=== PATIENT | female | born 1945 | race Caucasian/White ===

== ENCOUNTER 2021-05-10 14:04 | Inpatient (IN) | payer BC ==
[~2021-05-10] VITALS: Ht 170.2 cm; Wt 67.6 kg
--- NOTE | 2021-05-10 14:26 | NUR ---
Note undone in EDM - 05/10/21 at 1911 by JULIUS THE PATIENT BIBS FOR C/O HEADACHE AND DIZZINESS X 2 DAYS,SLURRED SPEECH YESTERDAY AT 1600 X FEW MINNUTES. THE PATIENT RATES HEADACHE 03/31. DENIES SOB. IN ROOM AIR. RESPIRATION REGULAR AND UNLABORED. ATTACHED TO THE MONITOR. WARM BLANKET PROVIDED FOR COMFORT. WILL CONTINUE TO MONITOR THE PATIENT.
--- NOTE | 2021-05-10 14:26 | NUR ---
THE PATIENT BIBS FOR C/O HEADACHE AND DIZZINESS X 2 DAYS,SLURRED SPEECH YESTERDAY AT 1600 X FEW MINNUTES. NO SLURRED SPEECH NOTED AT THIS TIME. THE PATIENT RATES HEADACHE 9/10. DENIES SOB. IN ROOM AIR. RESPIRATION REGULAR AND UNLABORED. ATTACHED TO THE MONITOR. WARM BLANKET PROVIDED FOR COMFORT. WILL CONTINUE TO MONITOR THE PATIENT.
--- NOTE | 2021-05-10 14:36 | NUR ---
DR WEST AT THE BEDSIDE
--- NOTE | 2021-05-10 14:36 | NUR ---
BLOOD SPECIMEN COLLECTED AND SENT TO THE LAB
[2021-05-10] MEDS ORDERED: METOCLOPRAMIDE HCL 10 MG/2 ML VIAL ONE (14:58)
[2021-05-10] MEDS ORDERED: SUMATRIPTAN SUCCINATE 6 MG/0.5 ML VIAL SQ ONE ×2 (14:58→15:00)
[2021-05-10] MEDS ORDERED: METOCLOPRAMIDE HCL 10 MG/2 ML VIAL IV ONE (15:00)
[2021-05-10] MEDS ORDERED: IV NS 0.9% 1,000 ML BAG IV ONE (15:00)
[2021-05-10 15:02] LABS: BASOPHILS # (AUTO) 0.1 K/uL (0.0-0.2); BASOPHILS % (AUTO) 1.5 % (0.0-2.0); EOSINOPHILS % (AUTO) 4.1 % (0.0-6.0); HEMATOCRIT 35 % (33-45); HEMOGLOBIN 12.1 g/dL (11.5-14.8); LYMPHOCYTES # (AUTO) 1.2 K/uL (0.8-4.8); LYMPHOCYTES % (AUTO) 30.4 % (20.0-44.0); MEAN CORPUSCULAR HGB CONC 34 g/dl (31.0-36.0); MEAN CORPUSCULAR VOLUME 90 fL (82-100); MONOCYTES # (AUTO) 0.3 K/uL (0.1-1.30); MONOCYTES % (AUTO) 6.5 % (2.0-12.0); NEUTROPHILS # (AUTO) 2.3 K/uL (1.8-8.9); NEUTROPHILS % (AUTO) 57.5 % (43.0-81.0); PLATELET COUNT (AUTO) 207 K/uL (150-450)
--- NOTE | 2021-05-10 15:05 | NUR ---
TAKEN TO CT IN STABLE CONDITION.
[2021-05-10 15:10] LABS: CARBON DIOXIDE 28 mmol/L (21-32); CHLORIDE 104 mmol/L (98-107); CREATININE 1.7 mg/dL (0.6-1.3); GLUCOSE 104 mg/dL (74-106); POTASSIUM 4.2 mmol/L (3.5-5.1); SODIUM SERUM 140 mmol/L (136-145); UREA NITROGEN, BLOOD 28 mg/dL (7-18)
[2021-05-10 15:17] LABS: ALANINE AMINOTRANSFERASE 25 U/L (12-78); ALBUMIN 3.8 g/dL (3.4-5.0); ALKALINE PHOSPHATASE 114 U/L (46-116); ASPARTATE AMINOTRANSFERASE 19 U/L (15-37); BILIRUBIN,DIRECT 0.1 mg/dL (0.0-0.2); BILIRUBIN,TOTAL 0.3 mg/dL (0.2-1.0); TOTAL PROTEIN, SERUM 7.2 g/dL (6.4-8.2)
--- NOTE | 2021-05-10 15:47 | NUR ---
DR WEST MADE AWARE OF BP 194/82 AND HR 65. NO NEW ORDERS AT THIS TIME.
[2021-05-10] MEDS ORDERED: FLUT16SP16 (15:58)
[2021-05-10] MEDS ORDERED: LITH150C PO (15:58)
[2021-05-10] MEDS ORDERED: CALC1TAB30 PO (15:58)
[2021-05-10] MEDS ORDERED: MONT10TA22 PO (15:58)
[2021-05-10] MEDS ORDERED: VITA1TAB56 PO (15:58)
[2021-05-10] MEDS ORDERED: FLUO20CA42 PO (15:58)
[2021-05-10] MEDS ORDERED: CALC0.253 PO (15:58)
[2021-05-10] MEDS ORDERED: POLY17PO4 PO (15:58)
[2021-05-10] MEDS ORDERED: LEVO112T7 PO (15:58)
[2021-05-10] MEDS ORDERED: POLY15DR40 EACHEYE (15:59)
--- NOTE | 2021-05-10 16:46 | NUR ---
COVID SWAB DONE AND SENT TO THE LAB
--- NOTE | 2021-05-10 17:07 | NUR ---
CALLED NURSING SUP FOR TELE BED.
--- NOTE | 2021-05-10 17:08 | NUR ---
DR WEST MADE AWARE OF BP 180/79 AND HR 65. NO NEW ORDERS AT THIS TIME.
--- NOTE | 2021-05-10 19:16 | NUR ---
REPORT GIVEN TO NURSE MONTGOMERY FOR DENNY
--- NOTE | 2021-05-10 20:21 | NUR ---
per admitting, Dr supervisor inspection department for pt's primary care dr is Dr Holland. Awaiting dr's call
--- NOTE | 2021-05-10 21:19 | NUR ---
DR WEST ON THE PHONE W/ CORY VIDES, HOSPITALIST
--- NOTE | 2021-05-10 22:08 | NUR ---
pt sitting quietly, playing on cell phone. No complaints at this time
--- NOTE | 2021-05-10 22:10 | NUR ---
TELE BED: 310-4
--- NOTE | 2021-05-10 22:34 | NUR ---
gave report to shyann Trivedi for devin
[2021-05-10 22:45] VITALS: BP 152/82
[2021-05-10 23:00] VITALS: BP 152/82
[2021-05-10] MEDS ORDERED: FLUTICASONE PROPIONATE 16 GM BOTTLE NS PRN (23:00)
[2021-05-10] MEDS ORDERED: IV NS 0.9% 1,000 ML IV PRN (23:00)
[2021-05-10] MEDS ORDERED: ONDANSETRON HCL/PF 4 MG/2 ML VIAL IVP PRN (23:00)
[2021-05-10] MEDS ORDERED: KETOROLAC TROMETHAMINE INJ 30 MG/ML VIAL IV PRN (23:00)
[2021-05-10] MEDS ORDERED: Z GUARD REMEDY 2 OZ OINT TP PRN (23:00)
[2021-05-10] MEDS ORDERED: ZOLPIDEM TARTRATE 5 MG TABLET PO PRN (23:00)
--- NOTE | 2021-05-10 23:00 | NUR ---
MS COMMUNITY COORDINATOR NOTES RECEIVED NEW ADMIT FROM ER PER CARO THIS 76 Y.O. FEMALE,ALERT,ORIENTED X4,CHIEF COMPLAINT OF HEADACHE AND DIZZINESS X 2 DAYS.DIAGNOSIS ON ADMISSION COMPLEX MIGRAINE.WITH SALINE LOCK LEFT WRIST INTACT AND PATENT.AMBULATE WITH STEADY GAIT,NO SKIN ISSUES.CURRENT ON FLU/PNEUMONIA VACCINE AND WITH COMPLETE COVID 19 VACCINE.CALL LIGHT IN REACH,NEEDS ANTICIPATED.
--- NOTE | 2021-05-10 23:00 | NUR ---
MS RN NOTES STARTED ON IVF NS AT 75ML/HR RATE,INFUSING VIA IV PUMP.
[2021-05-10] MEDS: METOCLOPRAMIDE HCL 10 MG/2 ML VIAL IV SCH (23:15)
--- NOTE | 2021-05-10 23:15 | NUR ---
MS RN NOTES STARTED ON REGLAN 10MG IV ORDERED
[2021-05-10] MEDS: ENOXAPARIN SODIUM 30 MG/0.3 ML DISP.SYRIN SQ SCH (23:16)
--- NOTE | 2021-05-10 23:16 | NUR ---
MS RN NOTES STARTED ON LOVENOX 30MG,GIVEN SQ ON RIGHT UPPER ABDOMEN
[2021-05-11] MEDS: METOCLOPRAMIDE HCL 10 MG/2 ML VIAL IV SCH ×3 (05:50→17:30)
[2021-05-11 06:18] LABS: BASOPHILS # (AUTO) 0.1 K/uL (0.0-0.2); BASOPHILS % (AUTO) 0.9 % (0.0-2.0); EOSINOPHILS % (AUTO) 2.8 % (0.0-6.0); HEMATOCRIT 33 % (33-45); HEMOGLOBIN 11.1 g/dL (11.5-14.8); LYMPHOCYTES # (AUTO) 1.6 K/uL (0.8-4.8); LYMPHOCYTES % (AUTO) 29.2 % (20.0-44.0); MEAN CORPUSCULAR HGB CONC 34 g/dl (31.0-36.0); MEAN CORPUSCULAR VOLUME 91 fL (82-100); MONOCYTES # (AUTO) 0.4 K/uL (0.1-1.30); MONOCYTES % (AUTO) 7.8 % (2.0-12.0); NEUTROPHILS # (AUTO) 3.1 K/uL (1.8-8.9); NEUTROPHILS % (AUTO) 59.3 % (43.0-81.0); PLATELET COUNT (AUTO) 190 K/uL (150-450); RED BLOOD CELL COUNT(AUTO) 3.65 MIL/uL (4.0-5.2); WHITE BLOOD COUNT (AUTO) 5.3 K/uL (4.3-11.0)
--- NOTE | 2021-05-11 06:23 | NUR ---
MS RN NOTES FAIRLY RESTED,NO NAUSEA,VOMITING NOTED,HEADACHE IMPROVED.IVF INFUSING WELL ON LEFT WRIST,IN NO ACUTE DISTRESS.WILL ENDORSE TO DAY NURSE FOR DENNY.
[2021-05-11 07:22] LABS: ALANINE AMINOTRANSFERASE 23 U/L (12-78); ALBUMIN 3.4 g/dL (3.4-5.0); ALKALINE PHOSPHATASE 91 U/L (46-116); ASPARTATE AMINOTRANSFERASE 14 U/L (15-37); BILIRUBIN,TOTAL 0.3 mg/dL (0.2-1.0); CALCIUM, SERUM 8.7 mg/dL (8.5-10.1); CARBON DIOXIDE 26 mmol/L (21-32); CHLORIDE 111 mmol/L (98-107); CREATININE 1.7 mg/dL (0.6-1.3); GLUCOSE 96 mg/dL (74-106); MAGNESIUM 2.5 mg/dL (1.8-2.4); PHOSPHORUS 3.8 mg/dL (2.5-4.9); POTASSIUM 4.3 mmol/L (3.5-5.1); SODIUM SERUM 145 mmol/L (136-145); TOTAL PROTEIN, SERUM 6.5 g/dL (6.4-8.2); UREA NITROGEN, BLOOD 30 mg/dL (7-18)
--- NOTE | 2021-05-11 07:27 | NUR ---
RN OPENING NOTE- PT IS IN BED ALERT ORIENTED TO PERSON PLACE PURPOSE. VS STABLE, PT W IVF NS INFUSING AT 75/HR TO LEFT WRIST. SIDE RAILS UP, BED LOCKED, CALL LIGHT IN REACH. MONITOR ASSIST PRN
[2021-05-11 07:30] LABS: CHOLESTEROL 239 mg/dL (<200); HDL CHOLESTEROL 58 mg/dL (40-60); LDL 154 mg/dL (0-99); THYROID STIMULATING HORMONE 0.688 uIU/mL (0.358-3.74); TRIGLYCERIDES 117 mg/dL (30-150)
[2021-05-11] MEDS: LEVOTHYROXINE SODIUM 112 MCG TABLET PO SCH (07:52)
[2021-05-11 08:00] VITALS: BP 144/69
[2021-05-11] MEDS: POLYETHYLENE GLYCOL 3350 17 GM POWD.PACK PO SCH (09:06)
[2021-05-11] MEDS: FLUOXETINE HCL 20 MG CAPSULE PO SCH (09:06)
--- NOTE | 2021-05-11 12:55 | NUR ---
RN NOTE- PT UA COLLECTED FOR UA NA, UA PROFILE AND UA CREATININE
[2021-05-11 15:49] LABS: BILIRUBIN,URINE NEGATIVE (NEGATIVE); COLOR,URINE YELLOW (YELLOW); LEUKOCYTE ESTERASE ,URINE NEGATIVE (NEGATIVE); NITRITE, URINE NEGATIVE (NEGATIVE); PH,URINE 6.5 (5.0-8.0); PROTEIN,URINE NEGATIVE (NEGATIVE); UGLUCOSE NEGATIVE (NEGATIVE); UROBILINOGEN,URINE 0.2 EU/dL (0.2)
[2021-05-11 15:52] LABS: CREATININE, URINE 35.7 MG/DL (30.0-125.0)
[2021-05-11 16:00] VITALS: BP 133/66
[2021-05-11] MEDS ORDERED: LITHIUM CARBONATE 150 MG CAPSULE PO SCH (18:00)
--- NOTE | 2021-05-11 18:00 | NUR ---
RN NOTE- DR PALMER ORDERED STAT MRI BRAIN. PT ESCORTED TO MRI BY STAFF
--- NOTE | 2021-05-11 18:39 | NUR ---
RN CLOSING NOTE- PT BACK FROM MRI. RESULTS PENDING. IVF NS INFUSING TO LEFT WRIST AT 75/HR. PT PO INTAKE GOOD, MED COMPLIANT, USING BR. VS STABLE. CONTINUE TO MONITOR AND ASSIST. BED LOCKED. SIDE RAILS UP. CALL LIGHT IN REACH
--- NOTE | 2021-05-11 19:45 | NUR ---
MS RN NOTES RECEIVED ON BED WATCHING TV PROGRAM,IVF NS AT 75ML/HR RATE IN PROGRESS ON LEFT WRIST SALINE LOCK,VERBALIZED VERY MINIMAL HEADACHE,CALL LIGHT IN REACH,NEEDS ANTICIPATED.
[2021-05-11 20:00] VITALS: BP 158/80
[2021-05-11 20:21] VITALS: BP 158/80
[2021-05-11] MEDS: ACETAMINOPHEN 325 MG TABLET PO PRN (20:28)
--- NOTE | 2021-05-11 20:28 | NUR ---
MS RN NOTES C/O HEADACHE,TYLENOL 650MG PO GIVEN PER PATIENT REQUEST.
[2021-05-11] MEDS: ENOXAPARIN SODIUM 30 MG/0.3 ML DISP.SYRIN SQ SCH (21:14)
[2021-05-11] MEDS ORDERED: MONTELUKAST SODIUM (10MG) 10 MG TABLET PO SCH (22:00)
[2021-05-12] MEDS: METOCLOPRAMIDE HCL 10 MG/2 ML VIAL IV SCH ×3 (00:10→11:55)
[2021-05-12] MEDS: LEVOTHYROXINE SODIUM 112 MCG TABLET PO SCH (06:19)
--- NOTE | 2021-05-12 06:43 | NUR ---
MS RN NOTES HEADACHE IMPROVED,DUE MEDS ADMINISTERED.SLEPT WELL AT NIGHT,IVF NOW INFUSING,IN NO ACUTE DISTRESS
[2021-05-12 07:31] LABS: HEMATOCRIT 32 % (33-45); HEMOGLOBIN 10.9 g/dL (11.5-14.8); LYMPHOCYTES # (AUTO) 1.4 K/uL (0.8-4.8); LYMPHOCYTES % (AUTO) 39.6 % (20.0-44.0); MEAN CORPUSCULAR HGB CONC 34 g/dl (31.0-36.0); MEAN CORPUSCULAR VOLUME 91 fL (82-100); MONOCYTES # (AUTO) 0.3 K/uL (0.1-1.30); MONOCYTES % (AUTO) 8.5 % (2.0-12.0); NEUTROPHILS # (AUTO) 1.7 K/uL (1.8-8.9); NEUTROPHILS % (AUTO) 46.9 % (43.0-81.0); PLATELET COUNT (AUTO) 183 K/uL (150-450); RED BLOOD CELL COUNT(AUTO) 3.56 MIL/uL (4.0-5.2); WHITE BLOOD COUNT (AUTO) 3.6 K/uL (4.3-11.0)
--- NOTE | 2021-05-12 07:39 | NUR ---
RN NOTES PATIENT IN BED AWAKE AND A/O X4, ABLE TO MAKE NEEDS KNOWN. ON ROOM AIR, NO SOB NOTED. STILL WITH C/O HEADACHE BUT TOLERABLE, NO SIGNS OF ACUTE DISTRESS NOTED. SL ON LEFT WRIST INTACT, CALL LIGHT PLACED WITHIN EASY REACH, BED ON ITS LOWEST POSITION, BSR UP, WILL CONTINUE TO MONITOR.
[2021-05-12 07:44] LABS: ALANINE AMINOTRANSFERASE 24 U/L (12-78); ALBUMIN 3.4 g/dL (3.4-5.0); ALKALINE PHOSPHATASE 89 U/L (46-116); ASPARTATE AMINOTRANSFERASE 16 U/L (15-37); BILIRUBIN,TOTAL 0.3 mg/dL (0.2-1.0); CARBON DIOXIDE 27 mmol/L (21-32); CHLORIDE 109 mmol/L (98-107); CREATININE 1.7 mg/dL (0.6-1.3); GLUCOSE 92 mg/dL (74-106); MAGNESIUM 2.3 mg/dL (1.8-2.4); PHOSPHORUS 4.3 mg/dL (2.5-4.9); POTASSIUM 4.1 mmol/L (3.5-5.1); SODIUM SERUM 143 mmol/L (136-145); TOTAL PROTEIN, SERUM 6.5 g/dL (6.4-8.2); UREA NITROGEN, BLOOD 31 mg/dL (7-18)
[2021-05-12 07:52] LABS: CALCIUM, SERUM 8.8 mg/dL (8.5-10.1)
[2021-05-12 08:00] VITALS: BP 132/80
[2021-05-12] MEDS: FLUOXETINE HCL 20 MG CAPSULE PO SCH (08:19)
[2021-05-12] MEDS: POLYETHYLENE GLYCOL 3350 17 GM POWD.PACK PO SCH (08:19)
[2021-05-12] MEDS: ACETAMINOPHEN 325 MG TABLET PO PRN ×2 (08:19→16:16)
--- NOTE | 2021-05-12 08:19 | NUR ---
RN NOTES PATIENT C/O HEADACHE, TYLENOL 650 MG GIVEN PER PATIENT'S REQUEST.
[2021-05-12] MEDS ORDERED: CALCITRIOL 0.25 MCG CAPSULE PO SCH (09:00)
--- NOTE | 2021-05-12 14:08 | NUR ---
RN NOTES DR. PALMER CURRENTLY IN UNIT TO SEE PATIENT FOR NEURO CONSULT.
--- NOTE | 2021-05-12 14:43 | NUR ---
RN NOTES DR. PALMER'S CONTACT INFORMATION GIVEN TO PATIENT.
[2021-05-12] MEDS ORDERED: VERA40TA5 PO (15:26)
== END 2021-05-12 17:50 | disposition home or self-care (01) | DRG 102 ==
LOC: ER 14:04 → TELE 22:19 → MED 05-11 06:23
PROVIDERS: ADMIT Nurse Practitioner Acute Care; ATTEND Nurse Practitioner Acute Care
DX: G43.109 Migraine with aura, not intractable, without status migrainosus (principal); N17.0 Acute kidney failure with tubular necrosis; F07.81 Postconcussional syndrome; I25.10 Atherosclerotic heart disease of native coronary artery without angina pectoris; N18.9 Chronic kidney disease, unspecified; Z20.822 Contact with and (suspected) exposure to COVID-19; E03.9 Hypothyroidism, unspecified; E83.51 Hypocalcemia; F31.9 Bipolar disorder, unspecified; I12.9 Hypertensive chronic kidney disease with stage 1 through stage 4 chronic kidney disease, or unspecified chronic kidney disease; N18.32 Chronic kidney disease, stage 3b; R29.810 Facial weakness; R53.1 Weakness
CPT/HCPCS: 36415; 70450-TC; 70551-TC; 72125-TC; 76770-TC; 80048-TC; 80053-TC; 80061-TC; 80076-TC; 82570-TC; 83735-TC; 83970; 84100-TC; 84300-TC; 84443-TC; 84484-TC; 85025-TC; 85730-TC; 87081-TC; C9803; G0378; J1650; J2765; J3030; J7030